=== PATIENT | female | born 1995 | race Caucasian/White ===

== ENCOUNTER 2017-01-14 19:14 | Emergency (ER) | payer MEDICARE, MEDICAID ==
[2017-01-14] MEDS ORDERED: NS 0.9% 1000 ML* 1,000 ML IV ONE (19:39)
[2017-01-14 21:14] LABS: Hematocrit 38 % (35-47); Hemoglobin 12.1 g/dl (12.0-16.0); Mean Corpuscular HGB Conc 32 g/dl (31-36); Mean Corpuscular Hemoglobin 25 pg (27-31); Mean Corpuscular Volume 76 fL (80-97); Mean Platelet Volume 10 um3 (7.4-10.4); Red Blood Count 4.94 10^6/ul (4.0-5.4); Red Cell Distribution Width 17 % (10.5-15); White Blood Count 8.4 10^3/ul (3.5-10.8)
[2017-01-14 21:30] LABS: ALT 16 U/L (7-52); AST 15 U/L (13-39); Albumin 4.6 g/dL (3.2-5.2); Alkaline Phosphatase 65 U/L (34-104); Anion Gap 7 mmol/L (2-11); BUN/Creatinine Ratio 6.6 (8-20); Blood Urea Nitrogen 5 mg/dL (6-24); C Reactive Protein 1.76 mg/L (< 5.00); CO2 Carbon Dioxide 27 mmol/L (22-32); Calcium 9.9 mg/dL (8.6-10.3); Chloride 104 mmol/L (101-111); EGFR African American 124.8 (>60); Globulin 2.8 g/dL (2-4); Glucose 89 mg/dL (70-100); Lipase 18 U/L (11.0-82.0); Potassium 3.5 mmol/L (3.5-5.0); Sodium 138 mmol/L (133-145); Total Protein 7.4 g/dL (6.4-8.9)
[2017-01-14 21:32] LABS: Urine Bacteria Absent (Absent); Urine Bilirubin Negative (Negative); Urine Glucose Negative (Negative); Urine Nitrite Negative (Negative)
[2017-01-14] MEDS ORDERED: Ketorolac INJ* 30 MG/ML 1 ML VIAL IV PUSH ONE (21:54)
--- NOTE | 2017-01-14 22:57 | RAD ---
HISTORY: Left lower quadrant pain COMPARISONS: None TECHNIQUE: Multiple transverse and longitudinal ultrasound images were obtained of the pelvis using grayscale, color Doppler, and spectral Doppler imaging using the endovaginal transducer. FINDINGS: UTERUS: The uterus measures 6.9 x 4 x 5.3 cm. The uterus is normal in shape, size, contour, and echotexture. ENDOMETRIUM: The endometrial stripe is smooth. The endometrium measures 0.3 cm in thickness. CUL-DE-SAC: There is no free fluid within the cul-de-sac. RIGHT OVARY: The right ovary measures 4 x 2.4 x 2.5 cm. Multiple follicles are noted. Normal arterial and venous waveforms are identifiable within the ovary on spectral Doppler imaging. LEFT OVARY: The left ovary measures 3.3 x 1.6 x 2.7 cm. Multiple follicles are noted. Normal arterial and venous waveforms are identifiable within the ovary on spectral Doppler imaging. . BLADDER: The bladder is not well visualized. IMPRESSION: NO SONOGRAPHIC FEATURES OF TORSION. PLEASE NOTE THAT PARTIAL OR INTERMITTENT TORSION MAY BE SONOGRAPHICALLY NORMAL. NO ACUTE SONOGRAPHIC PATHOLOGY OF THE VISUALIZED PORTION OF THE PELVIS.
[2017-01-15 00:18] VITALS: BP 129/61
--- NOTE | 2017-01-15 00:50 | ED ---
Abdominal Pain/Female - HPI Summary HPI Summary: Patient is a 21yo homeless girl 3 months s/p vaginal delivery presenting to ED with LLQ pain x 1 month. Patient has history of cysts and states this feels similar. Pain is worse during menstruation and better after rest. Denies taking any medication for relief, stating she cannot afford it. She had an uncomplicated and delivery. She is currently on her first menstrual cycle since delivery. Denies back pain, urinary sxs, AGUILLON, neck pain, N/V or weakness. Denies RLQ pain or suprapubic pain. - History of Current Complaint Chief Complaint: EDAbdPain Stated Complaint: ABD PAIN Time Seen by Provider: 01/14/17 20:45 Hx Obtained From: Patient ?: No Onset/Duration: Gradual Onset Timing: Minutes Severity Initially: Moderate Severity Currently: Moderate Pain Intensity: 3 Pain Scale Used: 0-10 Numeric Location: Discrete At: LLQ Radiates: No Character: Sharp Aggravating Factor(s): Other: - menstrual cycle Alleviating Factor(s): Nothing Associated Signs and Symptoms: Positive: Negative - Risk Factors Ectopic Risk Factor: Negative Ovarian Torsion Risk Factor: Reproductive Age, Ovarian Cysts/Tumors Allergies/Adverse Reactions: Allergies Allergy/AdvReac Type Severity Reaction Status Date / Time No Known Allergies Allergy Verified 01/14/17 19:22 PMH/Surg Hx/FS Hx/Imm Hx Previously Healthy: Yes - Immunization History Date of Tetanus Vaccine: utd Date of Influenza Vaccine: utd Infectious Disease History: No Infectious Disease History: Denies: Traveled Outside the [place] in Last 30 Days - Social History Occupation: Unemployed Lives: Alone - homeless Alcohol Use: Occasionally Hx Substance Use: Yes Substance Use Type: Reports: Marijuana Substance Use Comment - Amount & Last Used: daily use of marijuana - 4 bowls per day Hx Tobacco Use: Yes Smoking Status (MU): Light Every Day Tobacco Smoker Review of Systems Constitutional: Negative Cardiovascular: Negative Respiratory: Negative Positive: Abdominal Pain Positive: no symptoms reported, see HPI Musculoskeletal: Negative Skin: Negative Neurological: Negative All Other Systems Reviewed And Are Negative: Yes Physical Exam Triage Information Reviewed: Yes Vital Signs On Initial Exam: Initial Vitals Temp Pulse Resp BP Pulse Ox 97.6 F 81 18 126/79 100 01/14/17 19:20 01/14/17 19:20 01/14/17 19:20 01/14/17 19:20 01/14/17 19:20 Vital Signs Reviewed: Yes Appearance: Positive: Well-Appearing, Well-Nourished Skin: Positive: Warm, Skin Color Reflects Adequate Perfusion Eyes: Positive: Normal, TARIQ, Conjunctiva Clear Neck: Positive: Supple, No Lymphadenopathy Respiratory/Lung Sounds: Positive: Clear to Auscultation, Breath Sounds Present Cardiovascular: Positive: Normal, RRR Abdomen Description: Positive: Soft, Other: - LLQ tenderness, not worse with palpation Bowel Sounds: Positive: Present Musculoskeletal: Positive: Normal, Strength/ROM Intact Neurological: Positive: Sensory/Motor Intact, Alert, Oriented to Person Place, Time, Speech Normal Psychiatric: Positive: Normal - [place] Coma Scale Best Eye Response: 4 - Spontaneous Best Motor Response: 6 - Obeys Commands Best Verbal Response: 5 - Oriented Coma Scale Total: 15 Diagnostics - Vital Signs Vital Signs Temp Pulse Resp BP Pulse Ox 01/15/17 00:17 99.6 F 91 14 129/61 01/14/17 22:00 77 116/54 98 01/14/17 21:30 68 104/54 99 01/14/17 21:23 73 99 01/14/17 21:21 120/67 01/14/17 19:20 97.6 F 81 18 126/79 100 - Laboratory Lab Results: Lab Results 01/14/17 01/14/17 01/14/17 Range/Units 21:00 21:00 21:00 WBC 8.4 (3.5-10.8) 10^3/ul RBC 4.94 (4.0-5.4) 10^6/ul Hgb 12.1 (12.0-16.0) g/dl Hct 38 (35-47) % MCV 76 L (80-97) fL MCH 25 L (27-31) pg MCHC 32 (31-36) g/dl RDW 17 H (10.5-15) % Plt Count 214 (150-450) 10^3/ul MPV 10 (7.4-10.4) um3 Neut % (Auto) 63.2 (38-83) % Lymph % (Auto) 27.0 (25-47) % [place] % (Auto) 8.7 (1-9) % Eos % (Auto) 0.8 (0-6) % Baso % (Auto) 0.3 (0-2) % Absolute Neuts (auto) 5.3 (1.5-7.7) 10^3/ul Absolute Lymphs (auto) 2.3 (1.0-4.8) 10^3/ul Absolute Monos (auto) 0.7 (0-0.8) 10^3/ul Absolute Eos (auto) 0.1 (0-0.6) 10^3/ul Absolute Basos (auto) 0 (0-0.2) 10^3/ul Absolute Nucleated RBC 0 10^3/ul Nucleated RBC % 0 Sodium 138 (133-145) mmol/L Potassium 3.5 (3.5-5.0) mmol/L Chloride 104 (101-111) mmol/L Carbon Dioxide 27 (22-32) mmol/L Anion Gap 7 (2-11) mmol/L BUN 5 L (6-24) mg/dL Creatinine 0.76 (0.51-0.95) mg/dL Est GFR ( Amer) 124.8 (>60) Est GFR (Non-Af Amer) 97.0 (>60) BUN/Creatinine Ratio 6.6 L (8-20) Glucose 89 (70-100) mg/dL Lactic Acid (0.5-2.0) mmol/L Calcium 9.9 (8.6-10.3) mg/dL Total Bilirubin 0.50 (0.2-1.0) mg/dL AST 15 (13-39) U/L ALT 16 (7-52) U/L Alkaline Phosphatase 65 (34-104) U/L C-Reactive Protein 1.76 (< 5.00) mg/L Total Protein 7.4 (6.4-8.9) g/dL Albumin 4.6 (3.2-5.2) g/dL Globulin 2.8 (2-4) g/dL Albumin/Globulin Ratio 1.6 (1-3) Lipase 18 (11.0-82.0) U/L Beta HCG, Quant < 0.60 mIU/mL Urine Color Yellow Urine Appearance Clear Urine pH 6.0 (5-9) Ur Specific [place] 1.014 (1.010-1.030) Urine Protein Negative (Negative) Urine Ketones Trace H (Negative) Urine Blood 2+ H (Negative) Urine Nitrate Negative (Negative) Urine Bilirubin Negative (Negative) Urine Urobilinogen Negative (Negative) Ur Leukocyte Esterase Negative (Negative) Urine WBC (Auto) Absent (Absent) Urine RBC (Auto) 3+(>10/hpf) H (Absent) Ur Squamous Epith Cells Present H (Absent) Urine Bacteria Absent (Absent) Urine Glucose Negative (Negative) 01/14/17 Range/Units 21:00 WBC (3.5-10.8) 10^3/ul RBC (4.0-5.4) 10^6/ul Hgb (12.0-16.0) g/dl Hct (35-47) % MCV (80-97) fL MCH (27-31) pg MCHC (31-36) g/dl RDW (10.5-15) % Plt Count (150-450) 10^3/ul MPV (7.4-10.4) um3 Neut % (Auto) (38-83) % Lymph % (Auto) (25-47) % Young % (Auto) (1-9) % Eos % (Auto) (0-6) % Baso % (Auto) (0-2) % Absolute Neuts (auto) (1.5-7.7) 10^3/ul Absolute Lymphs (auto) (1.0-4.8) 10^3/ul Absolute Monos (auto) (0-0.8) 10^3/ul Absolute Eos (auto) (0-0.6) 10^3/ul Absolute Basos (auto) (0-0.2) 10^3/ul Absolute Nucleated RBC 10^3/ul Nucleated RBC % Sodium (133-145) mmol/L Potassium (3.5-5.0) mmol/L Chloride (101-111) mmol/L Carbon Dioxide (22-32) mmol/L Anion Gap (2-11) mmol/L BUN (6-24) mg/dL Creatinine (0.51-0.95) mg/dL Est GFR ( Amer) (>60) Est GFR (Non-Af Amer) (>60) BUN/Creatinine Ratio (8-20) Glucose (70-100) mg/dL Lactic Acid 1.0 (0.5-2.0) mmol/L Calcium (8.6-10.3) mg/dL Total Bilirubin (0.2-1.0) mg/dL AST (13-39) U/L ALT (7-52) U/L Alkaline Phosphatase (34-104) U/L C-Reactive Protein (< 5.00) mg/L Total Protein (6.4-8.9) g/dL Albumin (3.2-5.2) g/dL Globulin (2-4) g/dL Albumin/Globulin Ratio (1-3) Lipase (11.0-82.0) U/L Beta HCG, Quant mIU/mL Urine Color Urine Appearance Urine pH (5-9) Ur Specific [place] (1.010-1.030) Urine Protein (Negative) Urine Ketones (Negative) Urine Blood (Negative) Urine Nitrate (Negative) Urine Bilirubin (Negative) Urine Urobilinogen (Negative) Ur Leukocyte Esterase (Negative) Urine WBC (Auto) (Absent) Urine RBC (Auto) (Absent) Ur Squamous Epith Cells (Absent) Urine Bacteria (Absent) Urine Glucose (Negative) Result Diagrams: 01/14/17 21:00 01/14/17 21:00 Lab Statement: Any lab studies that have been ordered have been reviewed, and results considered in the medical decision making process. Abdominal Pain Fem Course/Dx - Course Course Of Treatment: Patient with RLQ pain not worse with palpation and described as 3/10 pain. US: IMPRESSION: NO SONOGRAPHIC FEATURES OF TORSION. PLEASE NOTE THAT PARTIAL OR INTERMITTENT TORSION MAY. BE SONOGRAPHICALLY NORMAL. NO ACUTE SONOGRAPHIC PATHOLOGY OF THE VISUALIZED PORTION OF THE PELVIS. Explained to patient the need to follow up with OBGYN for further evaluation. Patient agrees and is discharged home. Patient refusing medicaid cab to [facility] for assisted and prefers to stay in a tent. Ibuprofen prescribed. - Diagnoses Differential Diagnosis: Positive: Appendicitis, Ectopic , Ovarian Cyst , , Renal Colic Provider Diagnoses: Right lower quadrant abdominal pain Discharge - Discharge Plan Condition: Stable Disposition: HOME Prescriptions: Ibuprofen TAB* [Motrin TAB* 600 MG] 600 mg PO Q6H PRN #30 tab PRN Reason: Pain Patient Education Materials: Ovarian Cyst (ED) Referrals: No Primary Care Phys,NOPCP [Primary Care Provider] - Additional Instructions: Follow up with OBGYN if symptoms persist. Ibuprofen 600mg three times daily with meals as needed for pain. IF you develop worsening pain or fever, come back to ED.
== END 2017-01-15 00:17 | disposition home or self-care (01) ==
LOC: ED 19:14
DX: R10.32 Left lower quadrant pain (principal); F17.210 Nicotine dependence, cigarettes, uncomplicated
CPT/HCPCS: 36415; 76830; 80053; 81003; 81015; 83605; 83690; 84702; 85025; 86140; 99283; J1885

== ENCOUNTER 2017-04-04 09:31 | Emergency (ER) | payer MEDICARE, MEDICAID ==
[2017-04-04 10:23] LABS: Hematocrit 36 % (35-47); Hemoglobin 11.5 g/dl (12.0-16.0); Mean Corpuscular HGB Conc 32 g/dl (31-36); Mean Corpuscular Hemoglobin 25 pg (27-31); Mean Corpuscular Volume 78 fL (80-97); Mean Platelet Volume 10 um3 (7.4-10.4); Red Blood Count 4.65 10^6/ul (4.0-5.4); Red Cell Distribution Width 16 % (10.5-15)
[2017-04-04 10:41] LABS: Urine Bacteria Absent (Absent); Urine Bilirubin Negative (Negative); Urine Glucose Negative (Negative); Urine Nitrite Negative (Negative)
[2017-04-04 10:42] LABS: Albumin 4.3 g/dL (3.2-5.2); BUN/Creatinine Ratio 13.2 (8-20); C Reactive Protein 5.46 mg/L (< 5.00); Calcium 9.4 mg/dL (8.6-10.3); EGFR African American 124.8 (>60); Globulin 2.6 g/dL (2-4); Total Bilirubin 0.3 mg/dL (0.2-1.0); Total Protein 6.9 g/dL (6.4-8.9)
[2017-04-04 10:50] LABS: Potassium 4.4 mmol/L (3.5-5.0)
[2017-04-04 10:57] LABS: UR Preg Internal Control QC Line Present
--- NOTE | 2017-04-04 11:38 | RAD ---
INDICATION: Left lower quadrant pain COMPARISON: Similar examination dated January 14, 2017 TECHNIQUE: Real-time transabdominal only ultrasound examination of the female pelvis including grayscale and Doppler color flow imaging. FINDINGS: Uterus: The uterus is normal in size and echogenicity measuring 6.9 x 4.2 x 4.9 cm. The endometrial stripe is smooth and uniform measuring 5 mm in thickness. Ovaries: The right and left ovary measure 2.3 x 1.6 x 2.9 cm and 3.2 x 1.8 x 2.0 cm, respectively. Normal arterial and venous waveforms are identified. Appearance is within normal limits for the patient's age. There is no free fluid in the cul-de-sac. IMPRESSION: Normal and age-appropriate pelvic ultrasound.
[2017-04-04] MEDS ORDERED: Ondansetron INJ* 2 MG/ML VIAL IV ONE (12:26)
[2017-04-04] MEDS ORDERED: NS 0.9% 1000 ML* 2,000 ML IV ONE (12:26)
[2017-04-04] MEDS ORDERED: Morphine INJ* 4 MG/ML 1 ML SYRINGE IV ONE (12:26)
[2017-04-04] MEDS ORDERED: Iohexol 300* (CONTRAST) 10 ML SDV IV ONE (13:05)
--- NOTE | 2017-04-04 15:22 | ED ---
Abdominal Pain/Female - HPI Summary HPI Summary: Patient is homeless and has been camping in the area. She has had intermittent LLQ abdominal pain over the last month that has gotten worse over the last 3 days. In addition to her pain she has had her period for 2 weeks. She has not been sexually active since the bleeding began and she had a baby 6 months. Her pain can radiate to her belly button and suprapubic region. No fever, N/V/D, SOB , CP or back pain. She has been constipated. She says she bought a box of 40 super tampons two days ago and is almost done with the box. She is not and her periods have been irregular which is normal for her. - History of Current Complaint Chief Complaint: EDAbdPain Stated Complaint: LT ABD PAIN Time Seen by Provider: 04/04/17 09:42 Hx Obtained From: Patient ?: No Onset/Duration: Gradual Onset Timing: Constant Severity Initially: Moderate Severity Currently: Severe Pain Intensity: 8 Location: Discrete At: LLQ, Suprapubic Character: Sharp Aggravating Factor(s): Nothing Alleviating Factor(s): Nothing Associated Signs and Symptoms: Positive: Vaginal Bleeding Allergies/Adverse Reactions: Allergies Allergy/AdvReac Type Severity Reaction Status Date / Time No Known Allergies Allergy Verified 01/14/17 19:22 PMH/Surg Hx/FS Hx/Imm Hx Previously Healthy: Yes Endocrine/Hematology History: Denies: Hx Diabetes Cardiovascular History: Denies: Hx Hypertension History: Denies: Hx Renal Disease - Immunization History Date of Tetanus Vaccine: utd Date of Influenza Vaccine: utd Infectious Disease History: Denies: Traveled Outside the [place] in Last 30 Days - Family History Known Family History: Positive: None - Social History Occupation: Unemployed Lives: Alone - homeless Alcohol Use: Occasionally Hx Substance Use: Yes Substance Use Type: Reports: Marijuana Substance Use Comment - Amount & Last Used: daily use of marijuana - 4 bowls per day Hx Tobacco Use: Yes Smoking Status (MU): Light Every Day Tobacco Smoker Cessation Counseling: Patient Advised to Stop Review of Systems Negative: Fever, Chills Negative: Chest Pain Negative: Shortness Of Breath Positive: Abdominal Pain. Negative: Vomiting, Diarrhea, Nausea Positive: no symptoms reported All Other Systems Reviewed And Are Negative: Yes Physical Exam Triage Information Reviewed: Yes Vital Signs On Initial Exam: Initial Vitals Temp Pulse Resp BP Pulse Ox 98.0 F 81 16 128/70 100 04/04/17 09:40 04/04/17 09:40 04/04/17 09:40 04/04/17 09:40 04/04/17 09:40 Vital Signs Reviewed: Yes Appearance: Positive: Well-Appearing, No Pain Distress, Well-Nourished Skin: Positive: Warm, Skin Color Reflects Adequate Perfusion, Dry, Soft Head/Face: Positive: Normal Head/Face Inspection Eyes: Positive: EOMI, TARIQ, Conjunctiva Clear ENT: Positive: Hearing grossly normal Neck: Positive: Supple, Nontender, No Lymphadenopathy Respiratory/Lung Sounds: Positive: Clear to Auscultation, Breath Sounds Present Cardiovascular: Positive: RRR Abdomen Description: Positive: Soft. Negative: Nontender - TTP LLQ and periumbilical region, CVA Tenderness (R), CVA Tenderness (L), Distended, Guarding Bowel Sounds: Positive: Present Musculoskeletal: Positive: Strength/ROM Intact. Negative: Edema Left, Edema Right Neurological: Positive: Sensory/Motor Intact, Alert, Oriented to Person Place, Time, NV Bundle Intact Distally, Normal Gait Psychiatric: Positive: Affect/Mood Appropriate AVPU Assessment: Alert - [place] Coma Scale Coma Scale Total: 15 Diagnostics - Vital Signs Vital Signs Temp Pulse Resp BP Pulse Ox 04/04/17 15:00 63 100 04/04/17 14:30 73 119/63 100 04/04/17 14:00 67 111/53 99 04/04/17 13:30 62 119/65 100 04/04/17 13:00 70 115/66 99 04/04/17 12:31 15 04/04/17 12:30 67 126/67 99 04/04/17 12:00 71 100/47 98 04/04/17 11:30 55 117/67 99 04/04/17 11:00 88 119/60 95 04/04/17 10:30 71 118/68 98 04/04/17 10:00 87 127/71 100 04/04/17 09:56 72 99 04/04/17 09:54 120/74 04/04/17 09:40 98.0 F 81 16 128/70 100 - Laboratory Lab Results: Lab Results 04/04/17 04/04/17 04/04/17 Range/Units 09:50 09:50 09:50 WBC 7.0 (3.5-10.8) 10^3/ul RBC 4.65 (4.0-5.4) 10^6/ul Hgb 11.5 L (12.0-16.0) g/dl Hct 36 (35-47) % MCV 78 L (80-97) fL MCH 25 L (27-31) pg MCHC 32 (31-36) g/dl RDW 16 H (10.5-15) % Plt Count 144 L (150-450) 10^3/ul MPV 10 (7.4-10.4) um3 Neut % (Auto) 61.7 (38-83) % Lymph % (Auto) 24.1 L (25-47) % [place] % (Auto) 12.2 H (1-9) % Eos % (Auto) 1.6 (0-6) % Baso % (Auto) 0.4 (0-2) % Absolute Neuts (auto) 4.3 (1.5-7.7) 10^3/ul Absolute Lymphs (auto) 1.7 (1.0-4.8) 10^3/ul Absolute Monos (auto) 0.9 H (0-0.8) 10^3/ul Absolute Eos (auto) 0.1 (0-0.6) 10^3/ul Absolute Basos (auto) 0 (0-0.2) 10^3/ul Absolute Nucleated RBC 0 10^3/ul Nucleated RBC % 0 Sodium 138 (133-145) mmol/L Potassium 4.4 (3.5-5.0) mmol/L Chloride 110 (101-111) mmol/L Carbon Dioxide 22 (22-32) mmol/L Anion Gap 6 (2-11) mmol/L BUN 10 (6-24) mg/dL Creatinine 0.76 (0.51-0.95) mg/dL Est GFR ( Amer) 124.8 (>60) Est GFR (Non-Af Amer) 97.0 (>60) BUN/Creatinine Ratio 13.2 (8-20) Glucose 96 (70-100) mg/dL Calcium 9.4 (8.6-10.3) mg/dL Total Bilirubin 0.30 (0.2-1.0) mg/dL AST 15 (13-39) U/L ALT 11 (7-52) U/L Alkaline Phosphatase 52 (34-104) U/L C-Reactive Protein 5.46 H (< 5.00) mg/L Total Protein 6.9 (6.4-8.9) g/dL Albumin 4.3 (3.2-5.2) g/dL Globulin 2.6 (2-4) g/dL Albumin/Globulin Ratio 1.7 (1-3) Urine Color Yellow Urine Appearance Clear Urine pH 6.0 (5-9) Ur Specific [place] 1.021 (1.010-1.030) Urine Protein Negative (Negative) Urine Ketones Negative (Negative) Urine Blood Negative (Negative) Urine Nitrate Negative (Negative) Urine Bilirubin Negative (Negative) Urine Urobilinogen Negative (Negative) Ur Leukocyte Esterase 1+ H (Negative) Urine WBC (Auto) 2+(11-20/hpf) H (Absent) Urine RBC (Auto) Trace(0-2/hpf) (Absent) Ur Squamous Epith Cells Present H (Absent) Urine Bacteria Absent (Absent) Urine Glucose Negative (Negative) Urine Test Negative (Negative) Result Diagrams: 04/04/17 09:50 04/04/17 09:50 Lab Statement: Any lab studies that have been ordered have been reviewed, and results considered in the medical decision making process. - Ultrasound No standard instances Ultrasound Interpretation: No Acute Changes Ultrasound Interpretation Completed By: Radiologist Abdominal Pain Fem Course/Dx - Diagnoses Differential Diagnosis: Positive: Appendicitis, Bowel Obstruction, Constipation , Ectopic , Irritable Bowel Syndrome, Ovarian Cyst, Pancreatitis, , Renal Colic, Urinary Tract Infection Provider Diagnoses: Vaginal bleeding - Provider Notifications Discussed Care Of Patient With: Dr. Macdonald, [employer] Instructed by Provider To: Have Pt Call For Appt. Discharge - Discharge Plan Condition: Stable Disposition: HOME Prescriptions: medroxyPROGESTERone TAB* [Provera TAB*] 5 mg PO SEE INSTRUCTIONS #10 tab Referrals: No Primary Care Phys,NOPCP [Primary Care Provider] -
--- NOTE | 2017-04-04 15:39 | RAD ---
CLINICAL HISTORY: Left lower quadrant pain x1 month, worse in the past 3 days accompanied with vaginal and rectal bleeding. COMPARISON: Same day pelvic ultrasound that did not reveal any acute abnormalities. TECHNIQUE: Contrast enhanced CT examination of the abdomen and pelvis from the lung bases through the initial tuberosities. The patient received 81 mL Omnipaque 300 intravenously prior to imaging.The patient received oral contrast as well prior to imaging. FINDINGS: VISUALIZED LUNG BASES: The visualized lung bases are grossly clear. There is no pleural effusion. ABDOMEN AND PELVIS: The liver, spleen, pancreas and adrenal glands are grossly normal in appearance. The gallbladder is normal. The kidneys are normal in appearance without focal mass, calcification or signs of hydronephrosis. There are contrast has progressed as far as the rectum. The small and large bowel are not distended. The patient's normal appendix is identified in the right lower quadrant with contrast and air in the lumen measuring 7 mm in diameter. Beginning at the sigmoid colon there is wall thickening measuring up to 6 mm in thickness (image 66 of 94). This wall thickening resolves at the rectum. In the same vicinity there are loops of low abdominal midline small bowel also measuring up to 6 mm in thickness (image 62). There are scattered top normal mesenteric lymph nodes visualized but none are pathologically enlarged. Depicted best on the coronal plane images (for example images 25 through 35), the mesenteric root appears distended suggestive of a "comb sign", and appearance associated with inflammatory bowel disease. The pelvic viscera is normal in appearance. The abdominal aorta and iliac arteries are normal in course and diameter. Degenerative changes include multilevel loss of intervertebral disc height involving the lower thoracic and lumbar spine.There are no sinister bone lesions. IMPRESSION: 1. There is minimal small and colonic wall thickening, as described above, in the presence of top normal but not pathologically enlarged mesenteric lymph nodes and a mesenteric root that exhibits a "comb sign". This appearance could be due to inflammatory or infectious bowel disease. 2. CT findings are otherwise normal and age-appropriate.
[2017-04-04] MEDS ORDERED: MEDROXYPROGESTERONE 5 MG PO ONE (16:06)
[2017-04-04 16:09] VITALS: BP 128/78
[2017-04-04] MEDS ORDERED: Acetaminophen TAB* 325 MG PO ONE (16:14)
--- NOTE | 2017-04-05 09:23 | PN ---
Progress Note - Progress Note Note: patient diagnosed with vaginal bleeding while in ED. d/c on medroxyprogesterone. Stool occult blood was positive.
== END 2017-04-04 16:29 | disposition home or self-care (01) ==
LOC: ED 09:31
DX: N93.9 Abnormal uterine and vaginal bleeding, unspecified (principal); R10.9 Unspecified abdominal pain; F17.210 Nicotine dependence, cigarettes, uncomplicated
CPT/HCPCS: 36415; 74177; 76856; 80053; 81003; 81015; 81025; 82270; 85025; 86140; 87086; 96374; 96375; 99283; A9270-GY; J2270; J2405; Q9967